=== PATIENT | female | born 1980 | race Caucasian/White ===

== ENCOUNTER 2018-10-07 07:49 | Emergency (ER) | payer SELFPAY ==
[~2018-10-07] VITALS: Wt 90.0 kg
[2018-10-07 07:53] VITALS: BP 140/76; PULSE 78; RESP 18
[2018-10-07] MEDS ORDERED: CYCLOBENZAPRINE 10 MG TAB PO ONE (09:00)
[2018-10-07] MEDS ORDERED: IBUPROFEN 600 MG TAB PO ONE (09:00)
[2018-10-07] MEDS ORDERED: HYDROCODONE/APAP (5/325) TAB PO ONE (09:00)
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
[2018-10-07] MEDS ORDERED: CYCL10TA7 PO (09:38)
[2018-10-07] MEDS ORDERED: IBUP-1542 PO (09:38)
[2018-10-07] MEDS ORDERED: TRAM50TA2 PO (09:38)
== END 2018-10-07 09:53 | disposition home or self-care (01) ==
LOC: FTE 07:49
DX: S16.1XXA Strain of muscle, fascia and tendon at neck level, initial encounter (principal); S40.211A Abrasion of right shoulder, initial encounter; S69.92XA Unspecified injury of left wrist, hand and finger(s), initial encounter; R07.9 Chest pain, unspecified; V59.59XA Passenger in pick-up truck or van injured in collision with other motor vehicles in traffic accident, initial encounter
CPT/HCPCS: 71045; 72050; 73000; 73140